=== PATIENT | male | born 1970 | race Caucasian/White ===

== ENCOUNTER 2024-06-09 19:33 | Emergency (ER) | payer BC, SELFPAY ==
[2024-06-09 19:39] VITALS: BP 154/52; PULSE 76; RESP 18; TEMP 36.4; O2SAT 97; BMI 30.9
--- NOTE | 2024-06-09 19:49 | ED_ITS ---
HPI - General Adult General Chief complaint: Eye Problems Stated complaint: Blood in R eye History of Present Illness HPI narrative: Patient left before completement of treatment by ED provder. Related Data Allergies Allergy/AdvReac Type Severity Reaction Status Date / Time acetazolamide AdvReac Hypotension Verified 06/09/24 19:46 [From [employer]] [facility] Social History Social History Advance Directives: No Advance Directives Information Provided: No Do you have a plan to hurt others: No Plan Physical Exam ED Vital Signs: Vital Signs - 24 hr 06/09/24 19:39 06/09/24 22:45 Temperature 97.5 F 97.7 F Pulse Rate 76 76 Respiratory Rate 18 19 Blood Pressure 154/52 H 158/62 H Pulse Oximetry 97 97 Oxygen Delivery Method Room Air Room Air BMI result Body Mass Index 30.9 Course Course Course Narrative: RME: 54 yold male with pmh of Diabetes and Right eye surgery ( catarac) presents to the ED for right eye redness without trauma. HE states doing heavy lifting and than right eye turn red. patient denies any recent trauma to face. Patient denies any change in vision. patient denies any eye pain. Redness in the eye occurred after heavy lifting. Positive for eye redness sclera. Patient to be evaluated [facility] Discharge Plan Discharge Clinical Impression: Eye discomfort Patient Disposition: Left W/O Completing Treatment Discharge Date/Time: 06/10/24 00:02
[2024-06-09 22:45] VITALS: BP 158/62; PULSE 76; RESP 19; TEMP 36.5; O2SAT 97
--- NOTE | 2024-06-10 00:03 | PC.NURSE ---
Pt not yet picked up by provider, LWCT due to long wait.
== END 2024-06-10 00:02 | disposition left against medical advice (07) ==
PROVIDERS: Emergency Provider Emergency Medicine; PCP Internal Medicine
DX: H57.11 Ocular pain, right eye (principal)
CPT/HCPCS: 99282; 99283